=== PATIENT | female | born 1970 | race Caucasian/White ===

== ENCOUNTER 2023-03-24 17:28 | Emergency (ER) | payer MEDICAID, OTHER ==
[~2023-03-24] VITALS: Ht 175.3 cm; Wt 83.1 kg
[2023-03-24] MEDS ORDERED: NEUR800T PO (17:47)
[2023-03-24] MEDS ORDERED: TRAZ-257 PO (17:48)
[2023-03-24 18:54] LABS: BASO % 0.5 % (0.0-1.0); EOS # 0.1 10^3/uL (0.0-0.5); EOS % 1.9 % (0.0-3.0); HEMATOCRIT 41.2 % (36.0-47.0); LYMPH # 1.6 10^3/uL (1.5-5.0); LYMPH % 26.5 % (24.0-44.0); MEAN CORPUSCULAR HEMOGLOBIN 30.3 pg (27.0-33.0); MEAN CORPUSCULAR HGB CONC 36.4 g/dl (32.0-36.5); MEAN CORPUSCULAR VOLUME 83.2 fl (80.0-96.0); MONO # 0.3 10^3/uL (0.0-0.8); MONO % 5.6 % (2.0-8.0); NEUTROPHILS # 3.8 10^3/uL (1.5-8.5); NEUTROPHILS % 64.5 % (36.0-66.0); RED BLOOD COUNT 4.95 10^6/uL (4.00-5.40); WHITE BLOOD COUNT 5.9 10^3/uL (4.0-10.0)
[2023-03-24 19:09] LABS: CK-MB VALUE MASS 2.3 NG/ML (<3.6); LIPASE 59 U/L (12-53)
[2023-03-24] MEDS ORDERED: MORPHINE 4 MG/ML 1ML VIAL IV ONE (19:10)
[2023-03-24 19:11] LABS: ALBUMIN 4.2 G/DL (3.2-5.2); ALKALINE PHOSPHATASE 94 U/L (46-116); ALT/SGPT 11 U/L (7.0-40); AST/SGOT < 8 U/L (<34); BILIRUBIN,DIRECT < 0.1 MG/DL (<0.4); BILIRUBIN,TOTAL 0.5 MG/DL (0.3-1.2); BLOOD UREA NITROGEN 17 MG/DL (9-23); CALCIUM LEVEL 10.5 MG/DL (8.5-10.1); CARBON DIOXIDE LEVEL 24 MMOL/L (20-31); CHLORIDE LEVEL 100 MMOL/L (98-107); CREATININE FOR GFR 0.54 MG/DL (0.55-1.30); GLOMERULAR FILTRATION RATE > 60.0 (>51); GLUCOSE, FASTING 363 MG/DL (60-100); POTASSIUM SERUM 4.5 MMOL/L (3.5-5.1); SODIUM LEVEL 136 MMOL/L (136-145); TOTAL PROTEIN 7.1 G/DL (5.7-8.2)
[2023-03-24] MEDS ORDERED: HumuLIN R (REGULAR) INSULIN (NovoLIN R) **100U/ML** PER UNIT IV ONE (19:15)
[2023-03-24 19:19] VITALS: TEMP 98.4
[2023-03-24 19:23] LABS: CPK CREATINE PHOSPHOKINASE 51 U/L (34-145)
[2023-03-24 19:29] LABS: PLATELET COUNT, AUTOMATED 166 10^3/uL (150-450)
[2023-03-24] MEDS ORDERED: diphenhydrAMINE 50MG/ML VIAL IV STA (19:29)
[2023-03-24] MEDS ORDERED: ISOVUE-370 76% 100ML VIAL As Ordered ONE (19:39)
[2023-03-24 20:19] LABS: CK-MB VALUE MASS 1.5 NG/ML (<3.6)
[2023-03-24 20:25] LABS: CPK CREATINE PHOSPHOKINASE 41 U/L (34-145); MB/CK RELATIVE INDEX 3.65 (< OR =4)
[2023-03-24 22:00] VITALS: BP 144/77
[2023-03-24 22:01] VITALS: O2SAT 98
== END 2023-03-24 22:41 | disposition home or self-care (01) ==
LOC: M ED 17:28
DX: R07.9 Chest pain, unspecified (principal); R10.9 Unspecified abdominal pain; I44.4 Left anterior fascicular block; E11.9 Type 2 diabetes mellitus without complications; F17.200 Nicotine dependence, unspecified, uncomplicated; Z86.79 Personal history of other diseases of the circulatory system; Z87.442 Personal history of urinary calculi; Z88.1 Allergy status to other antibiotic agents; Z88.8 Allergy status to other drugs, medicaments and biological substances; Z79.810 Long term (current) use of selective estrogen receptor modulators (SERMs); Z79.899 Other long term (current) drug therapy
CPT/HCPCS: 36415; 71045; 71275; 74177; 80048; 80076; 82550; 82553; 83690; 85025; 93005; 93041; 94760; 96374; 96375; 99285; J1200; J1815; Q9967